=== PATIENT | male | born 1985 | race African-American/Black ===

== ENCOUNTER 2019-02-28 13:31 | Emergency (ER) | payer MEDICAID ==
[~2019-02-28] VITALS: Ht 175.3 cm; Wt 97.0 kg
[2019-02-28 15:17] VITALS: BP 140/85
== END 2019-02-28 15:22 | disposition home or self-care (01) ==
LOC: ER 13:31
DX: S01.01XA Laceration without foreign body of scalp, initial encounter (principal); F17.210 Nicotine dependence, cigarettes, uncomplicated; W22.09XA Striking against other stationary object, initial encounter; Y93.89 Activity, other specified; Y92.018 Other place in single-family (private) house as the place of occurrence of the external cause
CPT/HCPCS: 12001; 99283; Z7610

== ENCOUNTER 2019-03-15 11:37 | Emergency (ER) | payer MEDICAID ==
[~2019-03-15] VITALS: Ht 175.3 cm; Wt 98.0 kg
[2019-03-15 12:17] VITALS: BP 138/86
== END 2019-03-15 12:52 | disposition home or self-care (01) ==
LOC: ER 11:37
DX: S01.01XD Laceration without foreign body of scalp, subsequent encounter (principal); F17.200 Nicotine dependence, unspecified, uncomplicated; X58.XXXD Exposure to other specified factors, subsequent encounter
CPT/HCPCS: 99281

== ENCOUNTER 2020-10-01 07:51 | Emergency (ER) | payer MEDICAID, SELFPAY ==
[~2020-10-01] VITALS: Ht 175.3 cm; Wt 98.0 kg
[2020-10-01] MEDS ORDERED: ACETAMINOPHEN 325MG TABLET PO STA (08:17)
[2020-10-01] MEDS ORDERED: SODIUM CHLORIDE 0.9% 1,000 ML IV ONE (08:30)
[2020-10-01] MEDS ORDERED: AZITHROMYCIN 500 MG in DEXT 5% WATER 250 ML IV ONE (09:00)
[2020-10-01] MEDS ORDERED: CEFTRIAXONE 1 G PREMIX 50 ML IV ONE (09:00)
[2020-10-01 09:20] LABS: BASOPHILS % 0.8 % (0.0-2.0); HEMATOCRIT. 42.2 % (42.0-52.0); HEMOGLOBIN. 14.3 g/dL (14.0-18.0); LYMPHOCYTES % 8.9 % (20.0-50.0); MEAN CORPUSCULAR HEMOGLOBIN 32.6 pg (28.0-32.0); MEAN CORPUSCULAR VOLUME 96.1 fL (80.0-94.0); MEAN PLATELET VOLUME 9.4 fl (7.4-10.4); MONOCYTES % 9.7 % (2.0-8.0); NEUTROPHILS % 80.6 % (40.0-76.0); PLATELET 270 x1000/uL (130-400); RED BLOOD CELL COUNT 4.39 mill/uL (4.7-6.1); RED CELL DISTRIBUTION WIDTH 13.4 % (11.6-14.6)
[2020-10-01 09:26] LABS: CHLORIDE 102 mEq/L (98-107)
[2020-10-01 09:35] LABS: CLARITY URINE CLEAR (CLEAR); COLOR URINE YELLOW (YELLOW); KETONES URINE TRACE (NEGATIVE); LEUKOCYTE ESTERASE URINE NEGATIVE (NEGATIVE); NITRITE URINE NEGATIVE (NEGATIVE); OCCULT BLOOD URINE NEGATIVE (NEGATIVE); PROTEIN URINE NEGATIVE (NEGATIVE)
[2020-10-01 11:01] VITALS: BP 112/63
== END 2020-10-01 11:30 | disposition home or self-care (01) ==
LOC: ER 07:51
DX: A41.9 Sepsis, unspecified organism (principal); J18.9 Pneumonia, unspecified organism; J02.0 Streptococcal pharyngitis; Z03.818 Encounter for observation for suspected exposure to other biological agents ruled out; F17.210 Nicotine dependence, cigarettes, uncomplicated
CPT/HCPCS: 36415; 71045; 80053; 81003; 83605; 84145; 85025; 87040; 87086; 87430; 87635; 87804; 96361; 96365; 96368; 99291; J0456; J0696; J7030; J7060

== ENCOUNTER 2021-08-28 22:06 | Emergency (ER) | payer SELFPAY ==
[~2021-08-28] VITALS: Ht 175.3 cm; Wt 98.0 kg
[2021-08-29 00:49] LABS: BASOPHILS % 0.8 % (0.0-2.0); EOSINOPHILS % 1.8 % (0.0-5.0); HEMATOCRIT. 37.2 % (42.0-52.0); HEMOGLOBIN. 12.5 g/dL (14.0-18.0); LYMPHOCYTES % 43.3 % (20.0-50.0); MEAN CORPUSCULAR HEMOGLOBIN 31.8 pg (28.0-32.0); MEAN CORPUSCULAR VOLUME 94.2 fL (80.0-94.0); MONOCYTES % 8.7 % (2.0-8.0); NEUTROPHILS % 45.4 % (40.0-76.0); PLATELET 265 x1000/uL (130-400); RED BLOOD CELL COUNT 3.95 mill/uL (4.7-6.1); RED CELL DISTRIBUTION WIDTH 12.5 % (11.6-14.6)
[2021-08-29 01:01] LABS: CHLORIDE 104 mEq/L (98-107)
[2021-08-29 01:35] LABS: *AMPHETAMINES SCREEN URINE NEGATIVE (NEGATIVE); *BARBITURATES SCREEN URINE NEGATIVE (NEGATIVE); *BENZODIAZEPINES SCREEN URINE NEGATIVE (NEGATIVE); *COCAINE SCREEN URINE NEGATIVE (NEGATIVE)
[2021-08-29 01:36] LABS: CANNABINOID URINE SCREEN NEGATIVE (NEGATIVE); METHADONE URINE SCREEN NEGATIVE (NEGATIVE); OPIATES URINE SCREEN NEGATIVE (NEGATIVE); PHENCYCLIDINE URINE SCREEN NEGATIVE (NEGATIVE)
[2021-08-29 02:08] VITALS: BP 134/92
== END 2021-08-29 02:09 | disposition home or self-care (01) ==
LOC: ER 22:06
DX: R00.2 Palpitations (principal); R74.01 Elevation of levels of liver transaminase levels; F17.210 Nicotine dependence, cigarettes, uncomplicated; Z71.6 Tobacco abuse counseling
CPT/HCPCS: 36415; 80053; 80305; 84443; 85025; 85379; 93005; 99284; 99406

== ENCOUNTER 2021-11-17 09:36 | Emergency (ER) | payer SELFPAY ==
[~2021-11-17] VITALS: Ht 172.7 cm; Wt 97.0 kg
[2021-11-17 09:59] VITALS: BP 151/90
== END 2021-11-17 13:29 | disposition home or self-care (01) ==
LOC: ER 11:04
DX: U07.1 COVID-19 (principal); J06.9 Acute upper respiratory infection, unspecified; R11.10 Vomiting, unspecified
CPT/HCPCS: 71045; 99284; C9803; U0003; U0005